=== PATIENT | female | born 1975 | race Caucasian/White ===

== ENCOUNTER 2016-09-08 15:00 | Inpatient (IN) | payer BC, OTHER ==
[~2016-09-08] VITALS: Ht 185.4 cm; Wt 78.2 kg
[2016-09-08 14:50] VITALS: BP 126/82
[2016-09-08] MEDS ORDERED: ONDA4TAB10 PO (15:17)
[2016-09-08] MEDS ORDERED: OXYC-471 PO (15:17)
[2016-09-08] MEDS ORDERED: SUCR1TAB PO (15:17)
[2016-09-08] MEDS ORDERED: LACTATED RINGERS 1,000 ML IV ONE (15:31)
[2016-09-08 15:40] VITALS: BP 126/82
[2016-09-08] MEDS ORDERED: ONDANSETRON 4 MG/2 ML (SDV) Z0FRAN ONE (16:01)
[2016-09-08] MEDS ORDERED: fentaNYL INJECTION 100 MCG/2 ML AMP ONE (16:02)
[2016-09-08] MEDS: LACTATED RINGERS 1,000 ML IV SCH (16:40)
[2016-09-08] MEDS ORDERED: NS 100 ML (IVPB) BAG IV ONE (16:45)
[2016-09-08] MEDS ORDERED: IOHEXOL 350 MG/ML 100 ML (OMNIPAQUE 350) VIAL IV ONE (16:45)
[2016-09-08] MEDS ORDERED: CATHETER FLUSH 10 ML SYR IV PRN (16:45)
[2016-09-08] MEDS ORDERED: DIATRIZOATE MEGLUM/SODIUM 37% 120 ML (GASTROGRAFIN) PO ONE (16:45)
--- NOTE | 2016-09-08 17:05 | Diagnostic Imaging Report ---
PROCEDURE: CT abdomen and pelvis with contrast. TECHNIQUE: Multiple contiguous axial images were obtained through the abdomen and pelvis after administration of intravenous contrast. INDICATION: Right upper quadrant pain radiating to the right shoulder and left lower quadrant tenderness with diarrhea for two months, nausea for two weeks, and vomiting today. Previous hysterectomy and appendectomy. COMPARISON STUDIES: None. FINDINGS: Lung bases are clear. The liver, gallbladder, spleen, pancreas, adrenal glands, and kidneys appear normal. No ascites, free air, or abnormal adenopathy is present. The urinary bladder appears normal. The uterus and appendix are absent. Two cysts are present in the left ovary. The largest cyst measures up to 1.6 cm. The bowel loops appear normal. There is no ascites or free air. No hernias are present. The osseous structures appear unremarkable. IMPRESSION: Essentially normal CT scan. Hysterectomy changes are present. There are two follicles in the left ovary measuring up to 1.6 cm. Dictated by: Dictated on workstation # [id number]
[2016-09-08 17:13] LABS: BASOPHILS # (AUTO) 0.1 10^3/uL (0.0-0.1); BASOPHILS % (AUTO) 0 % (0-10); EOSINOPHILS # (AUTO) 0.1 10^3/uL (0.0-0.3); EOSINOPHILS % (AUTO) 1 % (0-10); LYMPHOCYTES % (AUTO) 35 % (12-44); MEAN CORPUSCULAR HEMOGLOBIN 32 PG (25-34); MEAN CORPUSCULAR HGB CONC 34 G/DL (32-36); MEAN CORPUSCULAR VOLUME 94 FL (80-99); MEAN PLATELET VOLUME 10.4 FL (7.4-10.4); MONOCYTES # (AUTO) 0.7 X 10^3 (0.0-1.0); MONOCYTES % (AUTO) 6 % (0-12); NEUTROPHILS # (AUTO) 6.7 X 10^3 (1.8-7.8); NEUTROPHILS % (AUTO) 58 % (42-75); PLATELET COUNT 308 10^3/uL (130-400); RED BLOOD COUNT 4.29 10^6/uL (4.35-5.85); RED CELL DISTRIBUTION WIDTH 12.2 % (10.0-14.5); WHITE BLOOD COUNT 11.6 10^3/uL (4.3-11.0)
[2016-09-08] MEDS ORDERED: MAGNESIUM CITRATE 300 ML BTL PO NR ×2 (17:15→22:15)
[2016-09-08] MEDS ORDERED: FLU TRIvalent (5 YOA+) 2016-17 (AFLURIA) 0.5 ML IM ONE (17:15)
[2016-09-08 17:39] LABS: ALANINE AMINOTRANSFERASE 18 U/L (0-55); ALBUMIN 4.1 G/DL (3.2-4.5); AMYLASE 37 U/L (25-125); ANION GAP 9 MMOL/L (5-14); ASPARTATE AMINO TRANSFERASE 19 U/L (5-34); BILIRUBIN,TOTAL 0.4 MG/DL (0.1-1.0); BLOOD UREA NITROGEN 5 MG/DL (7-18); BUN/CREATININE RATIO 6; CALCIUM 8.5 MG/DL (8.5-10.1); CARBON DIOXIDE 25 MMOL/L (21-32); CHLORIDE 106 MMOL/L (98-107); GFR ESTIMATED > 60; GLUCOSE 87 MG/DL (70-105); LIPASE 10 U/L (8-78); POTASSIUM 3.8 MMOL/L (3.6-5.0); SODIUM 140 MMOL/L (135-145); TOTAL PROTEIN 5.9 G/DL (6.4-8.2)
[2016-09-08] MEDS: fentaNYL INJECTION 100 MCG/2 ML AMP IV PRN ×2 (18:23→20:36)
[2016-09-08 19:03] VITALS: BP 119/73
[2016-09-08] MEDS: ONDANSETRON 4 MG/2 ML (SDV) Z0FRAN IV PRN (20:39)
[2016-09-09] VITALS: BP 111/69
[2016-09-09] MEDS: fentaNYL INJECTION 100 MCG/2 ML AMP IV PRN ×2 (00:10→19:18)
[2016-09-09] MEDS: LACTATED RINGERS 1,000 ML IV SCH ×3 (00:10→17:42)
[2016-09-09 04:00] VITALS: BP 100/67
[2016-09-09] MEDS: ONDANSETRON 4 MG/2 ML (SDV) Z0FRAN IV PRN ×3 (04:22→20:51)
[2016-09-09 08:00] VITALS: BP 110/68
[2016-09-09] MEDS ORDERED: KETOROLAC 15 MG/ML VIAL IVP PRN (09:30)
--- NOTE | 2016-09-09 10:49 | Pre-Op Note & Conscious Sedat ---
Pre-Operative Progress Note H&P Reviewed The H&P was reviewed, patient examined and no changes noted. Date H&P Reviewed: Sep 09, 2016 Time H&P Reviewed: 10:49 Pre-Op Diagnosis: diarrhea. Left lower quadrant pain. Family history of colon cancer Conscious Sedation Pre-Proced ASA Class: 1 Airway Mallampati Classification: ([place] appropriate class) I. II. III, IV Lungs Heart ASA score ASA 1: a normal healthy patient ASA 2: a patient with a mild systemic disease (mid diabetes, controlled hypertension, obesity ASA 3: a patient with a severe systemic disease that limits activity (angina , COPD, prior Myocardial infarction) ASA 4: a patient with an incapacitating disease that is a constant threat to life (CHF, renal failure) ASA 5: a moribund patient not expected to survive 24 hrs. (ruptured aneurysm) ASA 6: a declared brain patient whose organs are being harvested. For emergent operations, add the letter E after the classification Grade 1 Sedation Plan: Discussed options with patient/fam Note The patient is an appropriate candidate to undergo the planned procedure, sedation, and anesthesia. The patient immediately re-assessed prior to indication. YOHANA HANSEN MD Sep 09, 2016 10:49 am
[2016-09-09 12:00] VITALS: BP 110/67
--- NOTE | 2016-09-09 13:39 | Progress Note (SOAP) ---
Subjective Subjective/Events-last exam CT scan negative for any intra-abdominal pathology. Inadequacy left ovarian follicle side and divided. Bowel prep completed. Colonoscopy planned for today Review of Systems General: No Chills, No Night Sweats, No Fatigue, No Malaise HEENT: No Head Aches, No Eye Pain, No Ear Pain, No Dysphasia, No Sinus Congestion, No Post Nasal Drip, No Sore Throat Pulmonary: No Dyspnea, No Cough, No Pleuritic Chest Pain Cardiovascular: No: Chest Pain, Edema, Lt Headedness, Orthopnea, Palpitations, Paroxysmal Noc. Dyspnea Gastrointestinal: : Abdominal Pain Genitourinary: No Dysuria, No Frequency, No Incontinence, No Hematuria, No Retention Musculoskeletal: No: arm pain, back pain, foot pain, hand pain, leg pain, neck pain, other, shoulder pain Neurological: No: Change in speech, Confusion, Incoordination, Numbness, Other , Seizures, Weakness Objective Exam Vital Signs Date Time Temp Pulse Resp B/P Pulse Ox O2 Delivery O2 Flow Rate FiO2 09/09/16 12:00 98.1 74 20 110/67 96 Room Air 09/09/16 08:00 97.3 73 18 110/68 96 Room Air 09/09/16 04:00 97.4 80 19 100/67 98 Room Air 09/09/16 00:00 97.6 91 18 111/69 97 Room Air 09/08/16 19:03 97.9 77 16 119/73 96 09/08/16 18:07 96 Room Air 09/08/16 15:40 98.6 75 16 126/82 96 09/08/16 14:50 98.6 75 16 126/82 96 Room Air I & O 09/09/16 07:00 Intake Total 2500 ml Output Total 2300 ml Balance 200 ml Capillary Refill : Less Than 3 Seconds General Appearance: No Apparent Distress HEENT: TMs Normal Neck: Normal Inspection Respiratory: Lungs Clear Cardiovascular: Regular Rate, Rhythm Gastrointestinal: non tender soft Extremity: Normal Inspection Neurologic/Psychiatric: Alert Oriented x3 Skin: Warm/Dry Results Lab Laboratory Tests 09/08/16 17:00: Alanine Aminotransferase (ALT/SGPT) 18, Albumin 4.1, Alkaline Phosphatase 61, Amylase Level 37, Anion Gap 9, Aspartate Amino Transf (AST/SGOT) 19, BUN/ Creatinine Ratio 6, Basophils # (Auto) 0.1, Basophils (%) (Auto) 0, Blood Urea Nitrogen 5L, Calcium Level 8.5, Carbon Dioxide Level 25, Chloride Level 106, Creatinine 0.80, Eosinophils # (Auto) 0.1, Eosinophils (%) (Auto) 1, Estimat Glomerular Filtration Rate > 60, Glucose Level 87, Hematocrit 41, Hemoglobin 13.9, Lipase 10, Lymphocytes # (Auto) 4.0, Lymphocytes (%) (Auto) 35, Mean Corpuscular Hemoglobin 32, Mean Corpuscular Hemoglobin Concent 34, Mean Corpuscular Volume 94, Mean Platelet Volume 10.4, Monocytes # (Auto) 0.7, Monocytes (%) (Auto) 6, Neutrophils # (Auto) 6.7, Neutrophils (%) (Auto) 58, Platelet Count 308, Potassium Level 3.8, Red Blood Count 4.29L, Red Cell Distribution Width 12.2, Sodium Level 140, Total Bilirubin 0.4, Total Protein 5.9L, White Blood Count 11.6H Assessment/Plan Assessment/Plan Assess & Plan/Chief Complaint lady with symptoms suggestive of biliary colic. HIDA scan pending. Family history of colon cancer and new onset of diarrhea. Colonoscopy this afternoon. Clinical Quality Measures DVT/VTE Risk/Contraindication: Risk Factor Score Per Nursin RFS Level Per Nursing on Admit: 2=Moderate YOHANA HANSEN MD Sep 09, 2016 1:39 pm
--- NOTE | 2016-09-09 15:47 | Diagnostic Imaging Report ---
INDICATION: Right upper quadrant pain. TECHNIQUE: 5 mCi tech 99m Choletec was given IV. Stimulation was performed utilizing Ensure fatty meal with one hour delayed images. FINDINGS: There is prompt uptake by the liver. The gallbladder visualizes in a normal fashion. There is free flow of isotope into the small bowel. Following fatty meal, ejection fraction at one hour is calculated to be 13%. IMPRESSION: 1. Patent common and cystic ducts. 2. Hypokinetic gallbladder with stimulation. Dictated by: Dictated on workstation # [id number]
[2016-09-09 16:00] VITALS: BP 113/74
[2016-09-09] MEDS ORDERED: MIDAZOLAM 2 MG/2 ML (VERSED) VIAL ONE ×4 (16:17→16:39)
[2016-09-09] MEDS ORDERED: fentaNYL INJECTION 100 MCG/2 ML AMP ONE ×2 (16:18)
[2016-09-09] MEDS ORDERED: NS IV 500 ML 500 ML ONE (16:18)
[2016-09-09] MEDS: NS IV 500 ML 500 ML IV SCH ×2 (16:20→17:34)
[2016-09-09] MEDS: fentaNYL INJECTION 100 MCG/2 ML AMP IVP PRN ×4 (16:25→16:40)
[2016-09-09] MEDS: MIDAZOLAM 10 MG/2 ML (VERSED) VIAL IVP PRN ×4 (16:27→16:48)
--- NOTE | 2016-09-09 16:48 | Progress Note-Post Operative ---
Post-Operative Progess Note Pre-Operative Diagnosis diarrhea. Left lower quadrant pain. Family history of colon cancer Post-Operative Diagnosis normal examination Post-Op Procedure Note Date of Procedure: Sep 09, 2016 Name of Procedure: colonoscopy to cecum Anesthesia Type sedation YOHANA HANSEN MD Sep 09, 2016 4:48 pm
--- NOTE | 2016-09-09 16:53 | Progress Note-Standard ---
Standard Progress Note Progress Notes/Assess & Plan Progress/Assessment & Plan 09/09/16:HIDA scan is confirmed severe dyskinesia of the gallbladder and therefore lap scopic cholecystectomy would be reasonable. I have discussed the procedure with her and is scheduled for 9 a.m. tomorrow Final Diagnosis gallbladder dyskinesia YOHANA HANSEN MD Sep 09, 2016 4:53 pm
--- NOTE | 2016-09-09 16:55 | Progress Note-Pre Operative ---
Pre-Operative Progress Note H&P Reviewed The H&P was reviewed, patient examined and no changes noted. Date H&P Reviewed: Sep 09, 2016 Time H&P Reviewed: 16:53 Pre-Operative Diagnosis: gallbladder dyskinesia YOHANA HANSEN MD Sep 09, 2016 4:54 pm
[2016-09-09] MEDS ORDERED: metroNIDAZOLE 500MG/100ML IVPB 100 ML IV ONE (17:00)
[2016-09-09] MEDS ORDERED: ceFAZolin INJECTION 1,000 MG in NS (IVPB) 50 ML IV ONE (17:00)
[2016-09-09 19:45] VITALS: BP 130/79
[2016-09-10] VITALS: BP 103/66
[2016-09-10] MEDS: LACTATED RINGERS 1,000 ML IV SCH ×3 (01:20→09:55)
[2016-09-10] MEDS: ONDANSETRON 4 MG/2 ML (SDV) Z0FRAN IV PRN (03:48)
[2016-09-10 04:00] VITALS: BP 112/71
[2016-09-10] MEDS: fentaNYL INJECTION 100 MCG/2 ML AMP IV PRN ×3 (06:00→13:58)
[2016-09-10 08:00] VITALS: BP 109/62
[2016-09-10] MEDS ORDERED: metroNIDAZOLE 500MG/100ML IVPB 100 ML IV ONE (08:00)
[2016-09-10] MEDS ORDERED: ceFAZolin INJECTION 1,000 MG in NS (IVPB) 50 ML IV ONE (08:00)
[2016-09-10] MEDS ORDERED: LACTATED RINGERS 1,000 ML IV ONE (09:37)
[2016-09-10] MEDS ORDERED: ROCURONIUM 50 MG/5 ML (ZEMURON) VIAL IV ONE (09:37)
[2016-09-10] MEDS ORDERED: BUP/EPI 0.25% 1:200,000 (MARCAINE) 30 ML VIAL ONE (09:37)
[2016-09-10] MEDS ORDERED: proPOfol 200 MG/20 ML (DIPRIVAN) VIAL IV ONE (09:37)
[2016-09-10] MEDS ORDERED: SEVOFLURANE (ULTANE) 15 ML INHAL SOLN ONE (09:37)
[2016-09-10] MEDS ORDERED: LIDOCAINE PF 2% 10 ML (XYLOCAINE) AMP ONE (09:37)
[2016-09-10] MEDS ORDERED: fentaNYL INJECTION 100 MCG/2 ML AMP ONE (09:38)
[2016-09-10] MEDS ORDERED: MIDAZOLAM 2 MG/2 ML (VERSED) VIAL ONE (09:38)
[2016-09-10] MEDS ORDERED: MEPERIDINE (DEMEROL) INJ 50 MG/ML ONE (10:44)
[2016-09-10] MEDS ORDERED: HYDROmorphone (DILAUDID) 2 MG/ML VIAL ONE (10:44)
[2016-09-10] MEDS ORDERED: morphine INJ 10 MG/ML 1ML (SYR OR VIAL) ONE (10:44)
--- NOTE | 2016-09-10 10:56 | Progress Note-Post Operative ---
Post-Operative Progess Note Pre-Operative Diagnosis gallbladder dyskinesia Post-Operative Diagnosis same Post-Op Procedure Note Date of Procedure: Sep 10, 2016 Name of Procedure: laparoscopic cholecystectomy Anesthesia Type Gen. Estimated blood loss (mL): minimal Specimen(s) collected gallbladder YOHANA HANSEN MD Sep 10, 2016 10:56 am
[2016-09-10] MEDS ORDERED: HYDR-3812 PO (11:10)
--- NOTE | 2016-09-10 11:11 | Discharge Inst-Simple/Standard ---
Discharge Inst-Standard Discharge Medications New, Converted or Re-Newed RX: RX on Chart Patient Instructions/Follow Up Plan of Care/Instructions/FU: dressings off in a.m. Follow-up with me in 3 weeks. Incentive spirometry to be used at home for a week Activity as Tolerated: Yes Discharge Diet: No Restrictions YOHANA HANSEN MD Sep 10, 2016 11:11 am
[2016-09-10] MEDS: MEPERIDINE (DEMEROL) INJ 50 MG/ML IV PRN ×3 (11:24→11:45)
[2016-09-10] MEDS ORDERED: morphine INJ 10 MG/ML 1ML (SYR OR VIAL) IV PRN (11:30)
[2016-09-10] MEDS ORDERED: PROMETHAZINE INJ 25 MG/ML (PHENERGAN) AMP IV PRN (11:30)
[2016-09-10] MEDS ORDERED: ONDANSETRON 4 MG/2 ML (SDV) Z0FRAN IV PRN (11:30)
[2016-09-10 12:00] VITALS: BP 117/73
[2016-09-10] MEDS ORDERED: CATHETER FLUSH 10 ML SYR IV PRN (15:30)
[2016-09-10 16:00] VITALS: BP 114/70
[2016-09-10] MEDS: HYDROcodone/APAP 5 MG/325 MG (LORTAB) TAB PO PRN ×2 (16:24→20:02)
[2016-09-10 20:21] VITALS: BP 127/75
[2016-09-10] MEDS ORDERED: CATHETER FLUSH 10 ML SYR IV SCH (22:00)
--- NOTE | 2016-09-10 23:06 | PROCEDURE REPORT ---
PROCEDURE PHYSICIAN: YOHANA HANSEN DATE OF PROCEDURE: 09/09/2016 PROCEDURE: Colonoscopy. SURGEON: Dr. Hansen. INDICATION FOR THE PROCEDURE: This lady has been admitted with new onset of diarrhea, left lower quadrant abdominal pain and has a family history of colon cancer. Therefore, it was felt reasonable to perform colonoscopy. Informed consent was obtained after reviewing the procedure in detail. DESCRIPTION OF PROCEDURE: She was placed in left lateral decubitus position and her vital signs were monitored. Conscious sedation was achieved using Versed and fentanyl. Digital rectal examination was unremarkable. The colonoscope was then introduced into the rectum and advanced all the way up to the cecum. The quality of bowel preparation was satisfactory. The scope was then withdrawn slowly and the mucosa examined in a systematic fashion. There was no abnormality. She tolerated the procedure well and was taken back to the nursing area in a stable condition. IMPRESSION: 1. Diarrhea. 2. Family history of colon cancer. 3. Normal colonoscopy. 4. Recommend screening examination in 5 years. Job ID: [id number] Dictated Date: 09/09/2016 16:46:52 Wellness Coordinator Date: 09/10/2016 23:02:21 / prasanna GIRALDO
--- NOTE | 2016-09-11 00:01 | OPERATIVE REPORT ---
PROCEDURE PHYSICIAN: YOHANA HANSEN DATE OF PROCEDURE: 09/10/2016 PREOPERATIVE DIAGNOSES: 1. Gallbladder dyskinesia. 2. Chronic, acalculous cholecystitis. POSTOPERATIVE DIAGNOSES: 1. Gallbladder dyskinesia. 2. Chronic, acalculous cholecystitis. OPERATION: Laparoscopic cholecystectomy. SURGEON: Dr. Hansen. ANESTHESIA: General anesthesia. BLOOD LOSS: Minimal. FLUIDS: 1 liter of crystalloids. TYPE OF WOUND: Type II (clean - contaminant wound). INDICATION FOR THE PROCEDURE: This lady presented with severe symptoms due to dyskinesia of the gallbladder with a reduced ejection fraction. Therefore, it was felt reasonable to offer laparoscopic cholecystectomy. Informed consent was obtained after reviewing the operative details and complications of wound infection, bile leak and persistence of her symptoms. DESCRIPTION OF THE PROCEDURE: She was placed supine on the operative table and general anesthesia induced using an endotracheal tube. A gram of Ancef and 500 mg of Flagyl were administered intravenously as prophylaxis against wound infection. Sequential compression devices were placed around her legs, to minimize the risk of venous thrombosis. Abdomen was prepared and draped in the usual sterile manner. A supraumbilical incision was made and the linea alba incised vertically. A Crowe cannula was placed and carbon-dioxide was insufflated to an intra-abdominal pressure of 15 mmHg. Anatomy was visualized using a 30 degree laparoscope. The patient was then turned into reverse Trendelenburg position. Under direct vision, I placed a 5 mm trocar over the epigastric region, followed by 2 additional 5 mm trocars along the right side the abdomen. The fundus of the gallbladder was retracted cephalad and infundibulum grasped with another pair of forceps. Peritoneum overlying Calot's triangle was incised using Harmonic scalpel, delineating the cystic duct and artery. The former was divided between Ligaclips and the stump reinforced with a PDS Endoloop. The cystic artery was rather slender and controlled using harmonic scalpel itself. Cholecystectomy was then completed using the same device. Intra-abdominal pressure was reduced to 11 mmHg, looking for bleeding from the liver. One area was encountered close to the edge of the liver. It was easily controlled using cautery. The gallbladder was then placed in an Endo Catch bag and removed via the supraumbilical trocar site. Linea alba was then closed using number 1 Vicryl and skin with 4-0 Vicryl, in a subcuticular fashion. 0.25% Marcaine with epinephrine was infiltrated along the incisions, both preemptively and at the conclusion of the operation. She tolerated the procedure well, was extubated in the operating room and taken to the recovery room in a stable condition. [place], sponges, and instruments were correct at the end of the operation. Job ID: [id number] Dictated Date: 09/10/2016 10:49:49 Brand Advocate Date: 09/10/2016 23:53:41 / prasanna GIRALDO
--- NOTE | 2016-09-11 17:43 | Anesthesia-General Post-Op ---
General Patient Condition Mental Status/LOC: Same as Preop Cardiovascular: Satisfactory Nausea/Vomiting: Absent Respiratory: Satisfactory Pain: Controlled Complications: Absent Post Op Complications Complications None Follow Up Care/Instructions Patient Instructions None needed. Anesthesia/Patient Condition Patient Condition Patient is doing well, no complaints, stable vital signs, no apparent adverse anesthesia problems. No complications reported per nursing. D/C home per [facility] [place] [facility] Criteria: Yes KELLY REESE CRNA Sep 11, 2016 17:43
--- NOTE | 2016-09-12 00:22 | DISCHARGE SUMMARY ---
DATE OF ADMISSION: 09/08/2016. DATE OF DISCHARGE: 09/10/2016. DIAGNOSIS: 1. Gallbladder dyskinesia. 2. Chronic cholecystitis. 3. New onset of diarrhea. 4. Family history of colon cancer. BRIEF HISTORY: This lady was admitted with ongoing symptoms of biliary colic due to dyskinesia of the gallbladder. Due to new onset of diarrhea and a family history of colon cancer, she underwent colonoscopy, that was found to be normal. With regard to dyskinesia of the gallbladder, laparoscopic cholecystectomy was completed and she has made a satisfactory recovery. I have instructed her to contact me, should there be any concerns. We will schedule follow-up in 2 to 3 weeks. Job ID: [id number] Dictated Date: 09/11/2016 12:26:04 Wireworker Supervisor Date: 09/12/2016 00:20:41/prasanna GIRALDO
== END 2016-09-10 20:14 | disposition home or self-care (01) | DRG 419 ==
LOC: 4TH 15:00
PROVIDERS: ADMIT Surgery; ATTEND Surgery
PROC: 0DJD8ZZ Inspection of Lower Intestinal Tract, Via Natural or Artificial Opening Endoscopic (ICD-10-PCS; 2016-09-09)
PROC: 0FT44ZZ Resection of Gallbladder, Percutaneous Endoscopic Approach (ICD-10-PCS; principal; 2016-09-10 10:30)
DX: K82.8 Other specified diseases of gallbladder (principal); K81.1 Chronic cholecystitis; Z80.0 Family history of malignant neoplasm of digestive organs
CPT/HCPCS: 36415; 74177; 78227; 80053; 82150; 83690; 85025; 87081; 88304; 94664